=== PATIENT | female | born 1990 | race Caucasian/White ===

== ENCOUNTER 2016-11-09 21:01 | Emergency (ER) | payer OTHER, MEDICAID ==
[~2016-11-09] VITALS: Ht 162.6 cm; Wt 77.0 kg
[~2016-11-09 21:01] MED LIST: DOXY100C43 PO; METR500T PO; NAPR500T PO
[2016-11-09 21:36] VITALS: BP 151/98; PULSE 66; RESP 16; O2SAT 100
--- NOTE | 2016-11-09 21:53 | ED.REPORT ---
HPI-Extremity Problem Lower Date of Service Nov 09, 2016 ED Provider: Hilario Garzon MD Patient is a 25 year old female who presents to the ED complaining of right great toe pain. Associated symptoms include redness of her first and second toes on the right foot and blood under her toenail. She denies numbness. The patient states that she was at work last night and she dropped a pallet on her foot. It hurts to walk on her foot. Nursing Notes Stated Complaint: INJURED FOOT Chief Complaint: Extremity Trauma Nursing Notes Reviewed: Yes Allergies: Coded Allergies: No Known Allergies (Unverified Allergy, Unknown, 02/12/16) Scheduled Doxycycline Monohyd (Doxycycline Monohyd) 100 Mg Capsule 100 MG PO BID Metronidazole (Flagyl) 500 Mg Tablet 500 MG PO Q8H Scheduled PRN Naproxen (Naprosyn) 500 Mg Tablet 500 MG PO BID PRN PRN For Pain General Time Seen by MD: 21:51 Chief Complaint Toe injury right 1, Toe injury right 2 Hx Obtained From: Patient Arrived By: Walk-in Onset Occurred: Yesterday Symptom Duration: Since onset Caused by: Crushing injury Context: Occurred at: Workplace Location: : Toe right 1: Toe right 2 Quality: Painful Severity: Current: Moderate Similar Sx Previous: No Past Medical History Past Medical History None reported Past Surgical History None reported Smoking History Unknown if Ever Smoker Social History Has two children Other Social History: Lives with children Ambulatory Status Independent Review of Systems Constitutional: Denies: Chills, Fever Musculoskeletal: Reports: Extremity pain (right foot) Skin: Denies Itching, Denies Rash Neurologic: Denies: Numbness, Problem walking, Weakness Complete sys rev & neg: except as marked. Physical Exam Initial Vital Signs Vital Signs (First) Date Time Temp Pulse Resp B/P Pulse Ox O2 Delivery O2 Flow Rate FiO2 11/09/16 21:36 36.9 66 16 151/98 100 Room Air Initial VS: Reviewed Lower Extremity / Pelvis / MS: Atraumatic, Full range of motion subungual hematoma of the right great toe no palpable fracture or deformity good cap refill normal sensation General/Constitutional: Awake, Alert, No acute distress Respiratory / Chest: Atraumatic, No respiratory distress Skin: Atraumatic, Color NL, No rash, Warm, Dry Neurologic: Oriented X3, Speech NL, No motor deficits, No sensory deficits Head / Eyes: Atraumatic, Normocephalic, PERRL, EOMI Psychiatric: Affect NL, Mood NL Interpretation & Diagnostics X-Ray Interpretation Xray Interpretation: no evidence of acute fracture X-Ray Ordered: Foot right Interpretation / Wet Read by: Wet read ED physician Interpretation: Normal exam Re-Eval/Medical Decision Med Decision/Clinical Course Patient is a 25 year old female who presents to the ED complaining of right great toe pain. Associated symptoms include redness of her first and second toes on the right foot and blood under her toenail. She denies numbness. The patient states that she was at work last night and she dropped a pallet on her foot. It hurts to walk on her foot. Foot X-ray: showed no evidence of fracture. Patient has subungual hematoma. I offered trephination but she declined. She is neurovascularly intact. No obvious fractures on my interpretation of x-ray. She was provided with flat soled shoe for comfort. She will follow up with her primary care physician. She will apply ice packs. She was given Toradol for pain and will take ibuprofen at home. Prior to discharge follow-up and return precautions were reviewed in detail with the patient who verbalized understanding and agreement with the plan. The patient was discharged in stable condition. Re-Evaluation/Progress : Time of Eval: 22:41 Re-Evaluation/Progress Note: Discussed results and plan for discharge. Patient understands and agrees to plan. All questions were addressed. Counseled Regarding: Diagnosis, Lab results, Need for follow-up, When/why to return to ED Discharge & Departure Impression: Primary Impression: Subungual hematoma Additional Impression: Foot pain, right Disposition: Home Discharge Condition All VS Reviewed: Yes Condition: Stable Patient Instructions: Subungual Hematoma (ED) Additional Instructions: Thank you for seeking care at the emergency room. Our primary goal today in the Emergency Department was to evaluate you for any life-threatening conditions. Your evaluation was reassuring. There was no evidence of a fracture in your foot. You can take ibuprofen as needed for pain. You can try using ice on your toes to help with pain. You should follow-up with your primary doctor in the next week. You should return to the Emergency Department immediately if you develop increasing pain, numbness, tingling, weakness or any other concerning signs or symptoms. Thank you for letting us partake in your care today. Referrals: [facility] (PCP) [facility] Att[facility] Portions of this note were transcribed by Sally Carmona. I, Dr. Garzon personally performed the history, physical exam and medical decision-making; I reviewed and confirmed the accuracy of the information in the transcribed note. Signed by: Bravo Keys, 11/09/16 Hilario Garzon MD Nov 09, 2016 21:53 Judy Carmona Nov 09, 2016 22:02
[2016-11-09 23:01] VITALS: BP 118/78; PULSE 78; RESP 14; O2SAT 98
--- NOTE | 2016-11-10 08:10 | DRSVH ---
PROCEDURE: X-RAY RIGHT FOOT COMPLETE, MINIMUM THREE VIEWS ([id number]) INDICATIONS: pain TECHNIQUE: 4 views of the foot were acquired. COMPARISON: None. FINDINGS: Bones: No fractures or dislocations. No suspicious bony lesions. Soft tissues: No tibiotalar joint effusion. Achilles tendon appears normal. IMPRESSION: No acute fractures or dislocations. Dictated by: Steven Khan M.D. on 11/10/2016 at 8:08 Approved by: Steven Khan M.D. on 11/10/2016 at 8:09
== END 2016-11-09 23:02 | disposition home or self-care (01) ==
LOC: SED 21:01
DX: S90.211A Contusion of right great toe with damage to nail, initial encounter (principal); W20.8XXA Other cause of strike by thrown, projected or falling object, initial encounter; Y93.89 Activity, other specified; Y92.69 Other specified industrial and construction area as the place of occurrence of the external cause; Y99.0 Civilian activity done for income or pay; M79.671 Pain in right foot